=== PATIENT | male | born 1995 | race Caucasian/White ===

== ENCOUNTER 2017-11-22 23:46 | Emergency (ER) | payer OTHER ==
[2017-11-22] MEDS ORDERED: fentaNYL CITRATE/PF 100 MCG/ 2ML AMP IVP ONE (23:50)
[2017-11-22] MEDS ORDERED: ONDANSETRON HCL/PF 4 MG/ 2ML VIAL IVP ONE (23:50)
[2017-11-22] MEDS ORDERED: DIPH,PERTUSS(ACELL),TET VAC/PF 0.5 ML DISP.SYRIN IM ONE (23:54)
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
[2017-11-23] MEDS ORDERED: HYDROmorphone HCL/PF 1 MG/ML DISP.SYRIN IVP ONE (01:01)
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
[2017-11-23] MEDS ORDERED: HYDROmorphone HCL/PF 2 MG/ML DISP.SYRIN IVP ONE (01:15)
[2017-11-23] MEDS ORDERED: LIDOCAINE 1%/EPINEPHRINE 20ML VIAL IJ ONE (02:07)
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
[2017-11-23] MEDS ORDERED: MUPIROCIN 2% OINT 22GM TUBE TP ONE ×2 (02:49→04:09)
[2017-11-23] MEDS ORDERED: HYDROcodone /APAP 10/325 1 EACH TABLET PO ONE (03:09)
[2017-11-23 04:37] VITALS: BP 135/84
== END 2017-11-23 04:20 | disposition home or self-care (01) ==
LOC: ED 23:46 → EDBD 23:46 → ED 11-23 04:20
DX: S42.124A Nondisplaced fracture of acromial process, right shoulder, initial encounter for closed fracture (principal); S61.511A Laceration without foreign body of right wrist, initial encounter; V86.99XA Unspecified occupant of other special all-terrain or other off-road motor vehicle injured in nontraffic accident, initial encounter; Y92.9 Unspecified place or not applicable; Y93.9 Activity, unspecified; Y99.9 Unspecified external cause status; W19.XXXA Unspecified fall, initial encounter
CPT/HCPCS: 70450; 71045; 72125; 72170; 73030; 73110; 90715; J1170; J2405; J3010; 12002; 96372; 96374; 96375; S1016